=== PATIENT | male | born 1995 | race Caucasian/White ===

== ENCOUNTER 2019-12-12 21:44 | Emergency (ER) | payer BC ==
[~2019-12-12] VITALS: Ht 172.7 cm; Wt 80.3 kg
[2019-12-12 21:57] VITALS: Ht 172.7 cm; Wt 80.3 kg
[2019-12-12 23:09] VITALS: BP 137/85
== END 2019-12-13 03:40 | disposition left against medical advice (07) ==
LOC: ED 21:44
DX: Z53.21 Procedure and treatment not carried out due to patient leaving prior to being seen by health care provider (principal)